=== PATIENT | female | born 1980 | race Caucasian/White ===

== ENCOUNTER 2022-10-29 14:08 | Emergency (ER) | payer OTHER ==
[~2022-10-29] VITALS: Ht 160 cm; Wt 65.3 kg
[2022-10-29 14:23] VITALS: BP 137/85; PULSE 82; RESP 20; TEMP 98
[2022-10-29] MEDS ORDERED: KETOROLAC 30 MG/ML VIAL IM ONE (14:45)
[2022-10-29] MEDS ORDERED: DICYCLOMINE 10 MG CAP PO ONE (14:45)
[2022-10-29] MEDS ORDERED: ALUMINUM HYD/MAG/SIMETHICONE 30 ML UDC PO ONE (14:45)
[2022-10-29] MEDS ORDERED: FAMOTIDINE 20 MG TAB PO ONE (14:45)
[2022-10-29] MEDS ORDERED: ONDANSETRON 4 MG ODT PO ONE (14:45)
--- NOTE | 2022-10-29 14:56 | NUR ---
PATIENT PRESENTS TO ED WITH with history of abd pain since yesterday at 7:30 PM after Pt ate dinner. PT STATES pain was severe yesterday intensity of 8 to 10. Some Nausea, no vomiting or diarrhea SKIN IS PINK/WARM/DRY; AAOX4 WITH EVEN AND STEADY GAIT; PT DENIES ANY FEVER, CP, SOB, OR COUGH AT THIS TIME; PATIENT STATES PAIN OF 6/10 AT THIS TIME. Describs pain at mid abd, above umbilucus, radiating down to the pubic area, and radating to sides of abd bilaterally; patient took Ibuprofen yesterday for pain and melatioin for sleep. VSS; Temp: 97.8, Pulse 79, Resp. 16. BP: 120/82. PATIENT POSITIONED FOR COMFORT; HOB ELEVATED; BEDRAILS UP X2; BED DOWN. ER MD MADE AWARE OF PT STATUS. NKA. Med Hx: History of High Blood Pressue, hydrochlorohthiazide 12.5 mg once a day added yesterday by PCP. Takes larsatan 100 mg once a day. Had IUD removed 09/16/22 and had a uterine biopsy 10/18/22. PCP informed patinet she has liver inflamation.
--- NOTE | 2022-10-29 15:13 | NUR ---
Blood for labwork drawn from PHLEBOLOGIST. Patient tolerated.
[2022-10-29 15:19] LABS: BASOPHILS % (AUTO) 0.4 % (0.0-2.0); EOSINOPHILS # (AUTO) 0.1 K/uL (0-0.4); EOSINOPHILS % (AUTO) 0.5 % (0.0-4.0); HEMATOCRIT 38.8 % (36-48); HEMOGLOBIN 13.4 g/dL (12.0-16.0); LYMPHOCYTES # (AUTO) 2.1 K/uL (2.5-16.5); LYMPHOCYTES % (AUTO) 19.1 % (20.5-51.1); MEAN CORPUSCULAR HEMOGLOBIN 35 pg (27-31); MEAN CORPUSCULAR HGB CONC 35 g/dL (33-37); MONOCYTES # (AUTO) 0.8 K/uL (0.8-1.0); MONOCYTES % (AUTO) 7.4 % (1.7-9.3); NEUTROPHILS % (AUTO) 72.6 % (42.2-75.2); PLATELET COUNT (AUTO) 140 K/uL (140-450); RED BLOOD CELL COUNT(AUTO) 3.88 MIL/uL (4.20-5.40); RED CELL DISTRIBUTION WIDTH 12.4 % (11.6-13.7)
[2022-10-29] MEDS ORDERED: ONDANSETRON 4 MG ODT ONE (15:49)
[2022-10-29] MEDS ORDERED: KETOROLAC 30 MG/ML VIAL ONE (15:49)
[2022-10-29 15:51] LABS: APPEARANCE,URINE CLEAR (CLEAR); BILIRUBIN,URINE NEGATIVE (NEGATIVE); BLOOD, URINE NEGATIVE (NEGATIVE); COLOR,URINE ORANGE (YELLOW); LEUKOCYTE ESTERASE ,URINE 1+ (NEGATIVE); NITRITE, URINE NEGATIVE (NEGATIVE); UGLUCOSE NEGATIVE (NEGATIVE)
[2022-10-29 15:59] LABS: RBC,URINE 0-5 /HPF (0-5)
[2022-10-29 15:59] LABS: CREATININE 0.7 mg/dL (0.6-1.3); TOTAL BILIRUBIN 0.9 mg/dL (0.0-1.0)
[2022-10-29] MEDS ORDERED: ACET-10509 PO (16:25)
[2022-10-29] MEDS ORDERED: ONDA-188 PO (16:25)
[2022-10-29] MEDS ORDERED: DICY20TA19 PO (16:25)
[2022-10-29] MEDS ORDERED: IBUP-2213 PO (16:25)
[2022-10-29 16:45] VITALS: BP 138/76; PULSE 71; RESP 18; TEMP 37.00296; O2SAT 98
--- NOTE | 2022-10-29 16:45 | NUR ---
Patient discharged with v/s stable. Written and verbal after care instructions given and explained. Patient alert, oriented and verbalized understanding of instructions. Ambulatory with steady gait. All questions addressed prior to discharge. ID band removed. Patient advised to follow up with PMD. Rx of Zofran, Bentyl, Tylenol, Ibuprofen given. Patient educated on indication of medication including possible reaction and side effects. Opportunity to ask questions provided and answered.
== END 2022-10-29 16:45 | disposition home or self-care (01) ==
LOC: MED 14:08
DX: R10.13 Epigastric pain (principal); R11.2 Nausea with vomiting, unspecified; Z79.899 Other long term (current) drug therapy
CPT/HCPCS: 36415; 80053; 81001; 81025; 83690; 85025; 87086; 96372; 99284; J1885; Q0162

== ENCOUNTER 2023-01-29 18:23 | Emergency (ER) | payer OTHER ==
[~2023-01-29] VITALS: Ht 160 cm; Wt 63.0 kg
[~2023-01-29 18:23] MED LIST: ACET-10509 PO; DICY20TA19 PO; IBUP-2213 PO; ONDA-188 PO
[2023-01-29 19:00] VITALS: BP 106/60; PULSE 86; RESP 17; TEMP 98.8; O2SAT 98
[2023-01-30] MEDS ORDERED: ONDA-188 PO (10:19)
[2023-01-30] MEDS ORDERED: CEPH-588 PO (10:19)
[2023-01-30] MEDS ORDERED: IBUP-2213 PO (10:19)
== END 2023-01-29 21:35 | disposition left against medical advice (07) ==
LOC: MED 18:23
DX: M79.18 Myalgia, other site (principal); R51.9 Headache, unspecified; Z53.21 Procedure and treatment not carried out due to patient leaving prior to being seen by health care provider
CPT/HCPCS: 99281

== ENCOUNTER 2023-01-30 07:22 | Emergency (ER) | payer OTHER ==
[~2023-01-30] VITALS: Ht 160 cm; Wt 63.0 kg
[2023-01-30 07:43] VITALS: BP 101/62; PULSE 68; RESP 16; TEMP 98.4; O2SAT 98
[2023-01-30] MEDS ORDERED: NACL 0.9% 1,000 ML IV ONE (08:10)
[2023-01-30] MEDS ORDERED: ONDANSETRON 4 MG/2 ML VIAL IVP ONE (08:10)
[2023-01-30] MEDS ORDERED: ACETAMINOPHEN EXTRA STRENGTH 500 MG TAB PO ONE (08:10)
[2023-01-30 08:55] LABS: LYMPHOCYTES # (AUTO) 0.8 K/uL (2.5-16.5); WHITE BLOOD COUNT (AUTO) 7.9 K/uL (4.8-10.8)
[2023-01-30 08:55] LABS: APPEARANCE,URINE CLEAR (CLEAR); BILIRUBIN,URINE NEGATIVE (NEGATIVE); BLOOD, URINE NEGATIVE (NEGATIVE); COLOR,URINE YELLOW (YELLOW); LEUKOCYTE ESTERASE ,URINE 2+ (NEGATIVE); NITRITE, URINE NEGATIVE (NEGATIVE); PH,URINE 6.5 (5.0-9.0); PROTEIN,URINE 1+ (NEGATIVE); UGLUCOSE NEGATIVE (NEGATIVE)
[2023-01-30 09:01] LABS: BASOPHILS % (AUTO) 0.2 % (0.0-2.0); EOSINOPHILS % (AUTO) 0.4 % (0.0-4.0); HEMOGLOBIN 11.1 g/dL (12.0-16.0); LYMPHOCYTES % (AUTO) 9.9 % (20.5-51.1); MEAN CORPUSCULAR HEMOGLOBIN 35 pg (27-31); MEAN CORPUSCULAR HGB CONC 35 g/dL (33-37); MEAN CORPUSCULAR VOLUME 99.8 fL (80-94); MONOCYTES # (AUTO) 1.2 K/uL (0.8-1.0); MONOCYTES % (AUTO) 15.2 % (1.7-9.3); NEUTROPHILS # (AUTO) 5.9 K/uL (1.8-7.7); NEUTROPHILS % (AUTO) 74.3 % (42.2-75.2); PLATELET COUNT (AUTO) 94 K/uL (140-450); RED BLOOD CELL COUNT(AUTO) 3.21 MIL/uL (4.20-5.40); RED CELL DISTRIBUTION WIDTH 13.1 % (11.6-13.7)
[2023-01-30 09:08] LABS: BACTERIA,URINE 2+ /HPF (None Seen); RBC,URINE 0-5 /HPF (0-5); WBC,URINE 20-60 /HPF (0-5)
[2023-01-30 09:11] LABS: ALBUMIN 2.5 g/dL (3.4-5.0); ANION GAP 12.6 (8-16); CALCIUM 7.8 mg/dL (8.5-10.1); CARBON DIOXIDE 22.3 mmol/L (21-32); CREATININE 1.5 mg/dL (0.6-1.3); TOTAL BILIRUBIN 0.4 mg/dL (0.0-1.0); TOTAL PROTEIN, SERUM 6.6 g/dL (6.4-8.2)
[2023-01-30 09:19] LABS: FLU A ANTIGEN negative (NEGATIVE); FLU B ANTIGEN NEGATIVE (NEGATIVE)
[2023-01-30 09:21] LABS: POTASSIUM 2.9 mmol/L (3.5-5.1)
[2023-01-30 09:31] VITALS: BP 101/62; PULSE 68; RESP 16; TEMP 98.4
[2023-01-30 09:32] VITALS: O2SAT 98
[2023-01-30] MEDS ORDERED: ONDANSETRON 4 MG/2 ML VIAL ONE (09:41)
[2023-01-30] MEDS ORDERED: ACETAMINOPHEN EXTRA STRENGTH 500 MG TAB ONE (09:41)
[2023-01-30] MEDS ORDERED: POTASSIUM CHLORIDE 10 MEQ TABER PO ONE (10:10)
[2023-01-30] MEDS ORDERED: IBUP-2213 PO (10:19)
[2023-01-30] MEDS ORDERED: ONDA-188 PO (10:19)
[2023-01-30] MEDS ORDERED: CEPH-588 PO (10:19)
[2023-01-30] MEDS ORDERED: cefTRIAXone 1,000 MG VIAL ONE ×2 (10:21→10:31)
== END 2023-01-30 10:50 | disposition home or self-care (01) ==
LOC: MED 07:22
DX: N39.0 Urinary tract infection, site not specified (principal); M79.10 Myalgia, unspecified site; E87.1 Hypo-osmolality and hyponatremia; N17.9 Acute kidney failure, unspecified; E86.0 Dehydration; I10 Essential (primary) hypertension; Z79.899 Other long term (current) drug therapy; Z20.822 Contact with and (suspected) exposure to COVID-19
CPT/HCPCS: 36415; 71045; 80053; 81001; 81025; 82550; 83605; 83690; 85025; 87040; 87086; 87426; 87804; 96361; 96365; 96375; 99284; J0696; J2405; J7030